=== PATIENT | female | born 1945 | race Caucasian/White ===

== ENCOUNTER 2018-02-14 06:12 | Day surgery (SDC) | payer MEDICARE, OTHER ==
[~2018-02-14] VITALS: Ht 160 cm; Wt 91.2 kg
[~2018-02-14 06:12] MED LIST: ACET500 PO; ASPI81CH PO; FISH OIL 1,0001 EAC1 PO; VITAMIN D32000 UNIT PO
[2018-02-14] MEDS ORDERED: Melatonin1 MG PO (06:33)
[2018-02-15 04:27] LABS: BASOPHILS ABSOLUTE AUTO 0.02 K/mm3 (0.00-0.23); BASOPHILS PERCENT AUTO 0 % (0-2); EOSINOPHILS PERCENT AUTO 0 % (0-6); Hematocrit 35.5 % (33.0-51.0); Hemoglobin 11.4 g/dL (11.5-16.0); IMMATURE GRAN ABSOLUTE AUTO 0.06 K/mm3 (0.00-0.10); IMMATURE GRAN PERCENT AUTO 0 % (0-1); LYMPHOCYTES ABSOLUTE AUTO 0.98 K/mm3 (0.84-5.20); LYMPHOCYTES PERCENT AUTO 6 % (21-46); MONOCYTES ABSOLUTE AUTO 0.64 K/mm3 (0.16-1.47); MONOCYTES PERCENT AUTO 4 % (4-13); Mean Corpuscular HGB 29.4 pg (26.0-34.0); Mean Corpuscular HGB Conc 32.1 g/dL (31.5-36.5); Mean Corpuscular Volume 92 fL (80-100); Mean Platelet Volume 9.9 fL (9.1-12.4); NEUTROPHILS ABSOLUTE AUTO 13.75 K/mm3 (1.96-9.15); NEUTROPHILS PERCENT AUTO 89 % (41-73); Platelet Count 235 K/mm3 (150-400); RDW Coefficient Variation 13.4 % (11.7-14.2); RDW Standard Deviation 44.6 fL (35.1-46.3); Red Blood Cell Count 3.88 M/mm3 (3.80-5.20); White Blood Cell Count 15.45 K/mm3 (4.00-11.30)
[2018-02-15 04:40] LABS: Anion Gap 8 mmol/L (6-16); Blood Urea Nitrogen 15 mg/dL (8-24); Bun/Creatinine Ratio 15.8 (12.0-20.0); CO2, Blood 26 mmol/L (21-32); Calcium, Blood 8.5 mg/dL (8.5-10.1); Chloride, Blood 105 mmol/L (98-108); Creatinine, Blood 0.95 mg/dL (0.40-1.00); Glomerular Filtration Rate >60 (60-); Glucose, Blood 152 mg/dL (70-99); Potassium, Blood 4.5 mmol/L (3.5-5.5); Sodium, Blood 139 mmol/L (136-145)
[2018-02-15] MEDS ORDERED: ASPI325EC PO (13:51)
[2018-02-15] MEDS ORDERED: OXYC5 PO (13:51)
[2018-02-15] MEDS ORDERED: DOCU100 PO (13:52)
== END 2018-02-15 14:30 | disposition home or self-care (01) ==
LOC: ORSCMMR 06:12 → ORD 07:30 → ORSCMMR 07:30 → ORD 10:30 → ORSCMMR 11:01 → SURS 11:01 → ORSCMMR 22:38 → SURS 02-15 14:30
PROVIDERS: Orthopaedic Surgery
PROC: 0SRD0J9 Replacement of Left Knee Joint with Synthetic Substitute, Cemented, Open Approach (ICD-10-PCS; principal; 2018-02-14 07:30)
DX: M17.12 Unilateral primary osteoarthritis, left knee (principal); E66.9 Obesity, unspecified; Z68.35 Body mass index [BMI] 35.0-35.9, adult; Z86.73 Personal history of transient ischemic attack (TIA), and cerebral infarction without residual deficits; Z79.82 Long term (current) use of aspirin
CPT/HCPCS: 36415; 73560-LT; 80048; 85025; 86850; 86900; 86901; 88300; 97110; 97116; 97161; 97530; C1713; C1776; G8978; G8979; J0171; J0690; J0735; J1100; J1885; J2001; J2250; J2405; J2795; J3010; J7120

== ENCOUNTER → 2019-07-12 | Outpatient (CLI) | payer MEDICARE ==
[~2019-07-12] MED LIST changes: +ASPI325EC PO; +DOCU100 PO; +Melatonin1 MG PO; +OXYC5 PO
[2019-07-12 15:13] LABS: BASOPHILS ABSOLUTE AUTO 0.06 K/mm3 (0.00-0.23); BASOPHILS PERCENT AUTO 1 % (0-2); EOSINOPHILS ABSOLUTE AUTO 0.23 K/mm3 (0.00-0.68); EOSINOPHILS PERCENT AUTO 3 % (0-6); Hematocrit 42.3 % (33.0-51.0); IMMATURE GRAN ABSOLUTE AUTO 0.03 K/mm3 (0.00-0.10); IMMATURE GRAN PERCENT AUTO 0 % (0-1); LYMPHOCYTES ABSOLUTE AUTO 2.04 K/mm3 (0.84-5.20); LYMPHOCYTES PERCENT AUTO 23 % (21-46); MONOCYTES ABSOLUTE AUTO 0.76 K/mm3 (0.16-1.47); MONOCYTES PERCENT AUTO 9 % (4-13); Mean Corpuscular HGB 29.7 pg (26.0-34.0); Mean Corpuscular HGB Conc 33.1 g/dL (31.5-36.5); Mean Corpuscular Volume 90 fL (80-100); Mean Platelet Volume 9.7 fL (9.1-12.4); NEUTROPHILS ABSOLUTE AUTO 5.82 K/mm3 (1.96-9.15); NEUTROPHILS PERCENT AUTO 65 % (41-73); Platelet Count 296 K/mm3 (150-400); RDW Coefficient Variation 13.7 % (11.7-14.2); RDW Standard Deviation 44.8 fL (35.1-46.3); Red Blood Cell Count 4.71 M/mm3 (3.80-5.20); White Blood Cell Count 8.94 K/mm3 (4.00-11.30)
[2019-07-12 15:27] LABS: Alanine Aminotransfer (ALT/SGP 24 U/L (12-78); Albumin, Blood 3.4 g/dL (3.4-5.0); Albumin/Globulin Ratio 0.8 (0.8-1.8); Alk Phos 116 U/L (40-126); Anion Gap 9 mmol/L (6-16); Aspartate Aminotrans (AST/SGOT 22 U/L (12-37); Bilirubin, Total 0.4 mg/dL (0.1-1.0); Blood Urea Nitrogen 12 mg/dL (8-24); Bun/Creatinine Ratio 13.8 (12.0-20.0); CO2, Blood 27 mmol/L (21-32); Calcium, Blood 9.3 mg/dL (8.5-10.1); Chloride, Blood 103 mmol/L (98-108); Creatinine, Blood 0.87 mg/dL (0.40-1.00); Globulin, Blood 4.4 g/dL (2.2-4.0); Glomerular Filtration Rate >60 (60-); Glucose, Blood 120 mg/dL (70-99); Potassium, Blood 3.8 mmol/L (3.5-5.5); Sodium, Blood 139 mmol/L (136-145); Total Protein, Blood 7.8 g/dL (6.4-8.2); Troponin I <0.017 ng/mL (0.000-0.040)
== END ==
LOC: LAB SHORT 15:09 → LAB EV 15:09
PROVIDERS: Physician Assistant
DX: R07.89 Other chest pain (principal)
CPT/HCPCS: 80053; 84484; 85025

== ENCOUNTER → 2020-09-11 | Outpatient (CLI) | payer MEDICARE ==
[2020-09-12 10:19] LABS: Candida species (DNA Probe) Negative (NEGATIVE); G. vaginalis (DNA Probe) Positive (NEGATIVE); T. vaginalis (DNA Probe) Negative (NEGATIVE)
== END ==
LOC: LAB SHORT 17:09
PROVIDERS: Obstetrics & Gynecology
DX: N89.8 Other specified noninflammatory disorders of vagina (principal)
CPT/HCPCS: 87480; 87510; 87660

== ENCOUNTER 2020-10-21 08:56 | Day surgery (SDC) | payer MEDICARE ==
[~2020-10-21] VITALS: Ht 160 cm; Wt 91.4 kg
== END 2020-10-21 10:50 | disposition home or self-care (01) ==
LOC: ORSCSDS 08:56
PROVIDERS: Student in an Organized Health Care Education/Training Program
PROC: 0DB48ZX Excision of Esophagogastric Junction, Via Natural or Artificial Opening Endoscopic, Diagnostic (ICD-10-PCS; principal; 2020-10-21 10:15)
PROC: 0DB58ZX Excision of Esophagus, Via Natural or Artificial Opening Endoscopic, Diagnostic (ICD-10-PCS; principal; 2020-10-21 10:15)
PROC: 0DB68ZX Excision of Stomach, Via Natural or Artificial Opening Endoscopic, Diagnostic (ICD-10-PCS; principal; 2020-10-21 10:15)
DX: R13.10 Dysphagia, unspecified (principal); Z86.73 Personal history of transient ischemic attack (TIA), and cerebral infarction without residual deficits; E78.5 Hyperlipidemia, unspecified; K22.8 Other specified diseases of esophagus; E66.01 Morbid (severe) obesity due to excess calories; Z68.36 Body mass index [BMI] 36.0-36.9, adult; Z79.82 Long term (current) use of aspirin; Z79.899 Other long term (current) drug therapy
CPT/HCPCS: 88305; 88342; J2704; J7120

== ENCOUNTER 2024-05-04 21:23 | Observation (INO) | payer MEDICARE ==
[~2024-05-04] VITALS: Ht 160 cm; Wt 88.5 kg
[2024-05-04] MEDS ORDERED: TRAZ100 PO (21:49)
[2024-05-04] MEDS ORDERED: PLAVIX75 MG PO (21:49)
[2024-05-04 22:05] LABS: BASOPHILS ABSOLUTE AUTO 0.07 K/mm3 (0.00-0.23); BASOPHILS PERCENT AUTO 1 % (0-2); EOSINOPHILS ABSOLUTE AUTO 0.19 K/mm3 (0.00-0.68); EOSINOPHILS PERCENT AUTO 3 % (0-6); Hematocrit 38.3 % (33.0-51.0); IMMATURE GRAN ABSOLUTE AUTO 0.02 K/mm3 (0.00-0.10); IMMATURE GRAN PERCENT AUTO 0 % (0-1); LYMPHOCYTES ABSOLUTE AUTO 1.98 K/mm3 (0.84-5.20); LYMPHOCYTES PERCENT AUTO 27 % (21-46); MONOCYTES ABSOLUTE AUTO 0.61 K/mm3 (0.16-1.47); MONOCYTES PERCENT AUTO 8 % (4-13); Mean Corpuscular HGB 31.8 pg (26.0-34.0); Mean Corpuscular HGB Conc 33.9 g/dL (31.5-36.5); Mean Corpuscular Volume 94 fL (80-100); NEUTROPHILS ABSOLUTE AUTO 4.57 K/mm3 (1.96-9.15); NEUTROPHILS PERCENT AUTO 61 % (41-73); Platelet Count 252 K/mm3 (150-400); RDW Coefficient Variation 13.3 % (11.7-14.2); RDW Standard Deviation 45.2 fL (35.1-46.3); Red Blood Cell Count 4.09 M/mm3 (3.80-5.20); White Blood Cell Count 7.44 K/mm3 (4.00-11.30)
[2024-05-04 22:17] LABS: Albumin, Blood 3.2 g/dL (3.4-5.0); Albumin/Globulin Ratio 0.9 (0.8-1.8); Bilirubin, Total 0.2 mg/dL (0.1-1.0); Creatinine, Blood 0.84 mg/dL (0.40-1.00); Globulin, Blood 3.5 g/dL (2.2-4.0); Potassium, Blood 3.7 mmol/L (3.5-5.5); Total Protein, Blood 6.7 g/dL (6.4-8.2)
[2024-05-05] MEDS ORDERED: FLU VACC TS2024-25(6MOS UP)/PF 45 MCG/0.5 ML SYRINGE IM ONE (00:25)
[2024-05-05] MEDS ORDERED: Nitroglycerin 0.4 MG SUBL SL PRN (00:25)
[2024-05-05] MEDS ORDERED: NS 1,000 ML IV SCH ×2 (00:25→03:05)
[2024-05-05] MEDS ORDERED: Acetaminophen 325 MG TABLET PO PRN (00:25)
[2024-05-05] MEDS ORDERED: Ondansetron HCl 2 MG / ML 2ML Vial IV PRN (00:25)
[2024-05-05] MEDS ORDERED: FentaNYL Citrate 50 MCG/ML 2 ML Injection IV PRN (00:30)
[2024-05-05] MEDS ORDERED: Mag Hydrox/Al Hydrox/Simeth 18 ML,Lidocaine 2% Viscous Soln 9 ML,Atropine/Scopalam/Hyos... PO PRN (00:35)
[2024-05-05 00:58] LABS: International Normalized Ratio 0.96; Prothrombin Time Results 10.3 Sec (9.7-11.5)
[2024-05-05] MEDS ORDERED: Norco 10-325 T1 EACH PO (01:20)
--- NOTE | 2024-05-05 02:15 | NUR ---
PT HERE VIA [facility] FROM [facility]. PT AMBULATORY TO BED, AND THEN REQUESTED USE OF BRP - AMBULATED TO BRP. PT DENIED ANY CHEST PAIN, SOB, NAUSEA, OR NUMBNESS/TINGLING OR JAW PAIN. PT REPORTED 45 MINUTES AGO SHE EXPERIENCED NUMBNESS AND TINGLING DOWN HER LEFT ARM, WHICH LASTED ONLY FOR A FEW MOMENTS - DENIES ANY NUMBNESS NOW. ORIENTED PT TO ROOM/CALL LIGHT. FLUIDS AT BEDSIDE. BED IN LOW POSITION. BED ALARM PLACED ON FOR PT SAFETY, ONCE BACK TO BED. CALL LIGHT WITHIN REACH. TELE PLACED ON - NSR 83.
[2024-05-05 02:19] VITALS: BP 130/72
--- NOTE | 2024-05-05 02:25 | NUR ---
TELE PLACED ON - CALLED CLERK STENOGRAPHERARA VALLADARES AT 83.
--- NOTE | 2024-05-05 03:32 | NUR ---
REPORT GIVEN TO SARIAH KIRK.
[2024-05-05 03:34] VITALS: BP 127/76
[2024-05-05 07:38] VITALS: BP 135/72
[2024-05-05 07:51] LABS: BASOPHILS ABSOLUTE AUTO 0.07 K/mm3 (0.00-0.23); BASOPHILS PERCENT AUTO 1 % (0-2); EOSINOPHILS ABSOLUTE AUTO 0.23 K/mm3 (0.00-0.68); EOSINOPHILS PERCENT AUTO 3 % (0-6); Hematocrit 37.3 % (33.0-51.0); Hemoglobin 12.9 g/dL (11.5-16.0); IMMATURE GRAN ABSOLUTE AUTO 0.03 K/mm3 (0.00-0.10); IMMATURE GRAN PERCENT AUTO 0 % (0-1); LYMPHOCYTES ABSOLUTE AUTO 1.69 K/mm3 (0.84-5.20); LYMPHOCYTES PERCENT AUTO 24 % (21-46); MONOCYTES ABSOLUTE AUTO 0.66 K/mm3 (0.16-1.47); MONOCYTES PERCENT AUTO 9 % (4-13); Mean Corpuscular HGB 32.2 pg (26.0-34.0); Mean Corpuscular HGB Conc 34.6 g/dL (31.5-36.5); Mean Corpuscular Volume 93 fL (80-100); Mean Platelet Volume 9.2 fL (9.1-12.4); NEUTROPHILS ABSOLUTE AUTO 4.44 K/mm3 (1.96-9.15); NEUTROPHILS PERCENT AUTO 62 % (41-73); Platelet Count 254 K/mm3 (150-400); RDW Coefficient Variation 13.3 % (11.7-14.2); RDW Standard Deviation 45.3 fL (35.1-46.3); Red Blood Cell Count 4.01 M/mm3 (3.80-5.20); White Blood Cell Count 7.12 K/mm3 (4.00-11.30)
[2024-05-05 08:02] LABS: Albumin, Blood 3.1 g/dL (3.4-5.0); Albumin/Globulin Ratio 0.9 (0.8-1.8); Bilirubin, Total 0.2 mg/dL (0.1-1.0); Bun/Creatinine Ratio 17.4 (12.0-20.0); Calcium, Blood 8.7 mg/dL (8.5-10.1); Creatinine, Blood 0.69 mg/dL (0.40-1.00); Globulin, Blood 3.4 g/dL (2.2-4.0); Potassium, Blood 4.4 mmol/L (3.5-5.5); Total Protein, Blood 6.5 g/dL (6.4-8.2)
[2024-05-05] MEDS ORDERED: Enoxaparin 40 MG/0.4 ML SYR SC SCH (09:00)
[2024-05-05] MEDS ORDERED: ASPI81CH PO (15:36)
--- NOTE | 2024-05-05 16:36 | NUR ---
REPORT RECEIVED. PT HAS HAD NO C/O PAIN TODAY NO CHEST PAIN AND IS REQUESTING TO LEAVE AFTER ECHO. 1400 ECHO WAS DONE, WAS NOTIFIED AND DISCHARGE ORDERS GIVEN AND IMPLEMENTED. IV DCED PT WHEELCHAIRED OUTSIDE.
== END 2024-05-05 16:30 | disposition home or self-care (01) ==
LOC: ER 21:23 → MEDS 21:24 → ERHOLD 21:24 → MEDS 05-05 02:09 → ENPENDDIS 05-05 15:13 → MEDS 05-05 16:30
PROVIDERS: Student in an Organized Health Care Education/Training Program; ADMIT Internal Medicine
DX: R07.89 Other chest pain (principal); M51.369 Other intervertebral disc degeneration, lumbar region without mention of lumbar back pain or lower extremity pain; N18.30 Chronic kidney disease, stage 3 unspecified; G47.00 Insomnia, unspecified; Z88.1 Allergy status to other antibiotic agents; Z79.82 Long term (current) use of aspirin; Z79.899 Other long term (current) drug therapy
CPT/HCPCS: 36415; 71046; 80053; 83690; 83880; 84484; 85025; 85610; 93005; 93010; 93306; 99285-25; G0378; J7030

== ENCOUNTER → 2025-02-21 | Outpatient (CLI) | payer MEDICARE ==
[~2025-02-21] MED LIST changes: +Norco 10-325 T1 EACH PO; +PLAVIX75 MG PO; +TRAZ100 PO
[2025-02-22 13:44] LABS: Candida Group, PCR NOT DETECTED (NOT DETECT); Candida glabrata-krusei, PCR NOT DETECTED (NOT DETECT)
[2025-02-22 13:45] LABS: Bacterial Vaginosis PCR Positive (NEGATIVE)
== END ==
LOC: LAB SHORT 15:30 → LAB 15:30
PROVIDERS: Family Medicine
DX: N76.0 Acute vaginitis (principal); B96.89 Other specified bacterial agents as the cause of diseases classified elsewhere
CPT/HCPCS: 81515